=== PATIENT | female | born 1935 | race Caucasian/White ===

== ENCOUNTER → 2016-11-11 | Outpatient (CLI) | payer MEDICARE ==
[~2016-11-11] MED LIST: DIAZEPAM 10 MG TABLET. ONE; IOHEXOL 350 MG/ML 100 ML VIAL. ONE; IOHEXOL 350 MG/ML 50 ML VIAL. ONE; IV NORMAL SALINE 1000ML BAG 1,000 ML ONE; LIDOCAINE 1% Multi-Dose 20 ML VIAL. ONE; MIDAZOLAM HCL/PF 2 MG/2 ML VIAL. ONE; fentaNYL PF VIAL 100 MCG/2 ML VIAL ONE; hydrALAZINE 20 MG/ML VIAL. ONE
--- NOTE | 2016-11-12 17:29 | PCVCINTER ---
APPROVED REPORT Patient Details Patient Status: Room #: 2 The patient is a 81 year-old Female Event Personnel Aura Padilla MD, Cortes Mishra RT(R)(), Josh Cosme RN, Ellie Melo RT(R) Risk Factors Arterial HypertensionDysplipidemia (Type: 0), Last Creatanine 0.6 Previous Procedures/Diagnoses Arrhythmias - Supraventricular tachycardias->Paroxysmal AF, Hypertension Procedure Narrative The patient was brought electively to the Cardiac Catheterization Laboratory and was prepped and draped in a sterile manner. The right femoral was infiltrated with 1% Lidocaine subcutaneous anesthesia. The right femoral accessed via ultrasound guidance. A Right Heart Catheterization was performed with a 6 Fr. [place]-Kavitha catheter and pressure were recorded. Cardiac outputs were obtained by the Thermal Dilution method. A sheath was inserted into the right femoral artery. Coronary angiography was performed using coronary diagnostic catheters. The right coronary system was accessed and visualized with a Diagnostic catheter. The left coronary system was accessed and visualized with a Diagnostic catheter. The left ventricle was accessed and visualized with a Diagnostic catheter. Left ventriculogram was performed in LAZAR projection. An aortogram of the abdominal aorta was performed. Pre-demployment femoral angiogram was performed . Closure device was deployed with a 6 Fr Mynx. Hemostasis was obtained with manual pressure following sheath removal without any complications. The patient tolerated the procedure well and there were no complications associated with the procedure. There was no hematoma. Hemodynamics The right atrial mean pressure is 10 mmHg. The right ventricular pressure is 19/5 mmHg. The pulmonary artery pressure is 39/16 mmHg with a mean of 28 mmHg. The mean pulmonary capillary wedge pressure is 19 mmHg. The aortic pressure is 139/79 mmHg with a mean of 103 mmHg. The left ventricular pressure is 122/33 mmHg with a mean of 35 mmHg. The cardiac output and index were assessed using Thermal. The cardiac output using thermo method is 4.00 L/min. Conclusion #1 normal left jugular size with mild global hypokinesis EF 45-50% range mild MR #2 abdominal aorta is intact no aneurysm single renal arteries widely patent #3 left main free of disease giving rise to LAD and circumflex #4 LAD with mild irregularities extends to the apex #5 circumflex OM nondominant no significant disease #6 right coronary artery dominant vessel minimal irregularity no occlusive disease #7 successful right heart catheterization as described above with mild elevations in pulmonary pressure and pulmonary capillary wedge pressure Recommendations and plan we'll continue aggressive risk factor modification slightly more aggressive diuresis some relative fluid and sodium restriction no lifting for 48 hours no line tub Itineris or Waggoner for a week Follow-up scheduled 6 months
== END | disposition home or self-care (01) ==
LOC: PCVCINTER 07:28
PROVIDERS: ATTEND Internal Medicine Cardiovascular Disease
DX: I25.10 Atherosclerotic heart disease of native coronary artery without angina pectoris (principal); E78.5 Hyperlipidemia, unspecified; I10 Essential (primary) hypertension; I47.1 Supraventricular tachycardia; I48.0 Paroxysmal atrial fibrillation
CPT/HCPCS: 93460; 99152; 99153; C1751; C1760; C1769; C1894; J0360; J1644; J2250; J3010; J7030; Q9967

== ENCOUNTER → 2017-04-25 | Outpatient (CLI) | payer MEDICARE, OTHER | END | disposition home or self-care (01) | LOC: PCVCCLINIC 10:47 | DX: I48.91 Unspecified atrial fibrillation (principal); I10 Essential (primary) hypertension; I42.9 Cardiomyopathy, unspecified; R94.31 Abnormal electrocardiogram [ECG] [EKG]; Z79.899 Other long term (current) drug therapy | CPT/HCPCS: 80061; 93005; G0463 ==

== ENCOUNTER → 2017-06-02 | Outpatient (CLI) | payer OTHER, MEDICARE | END | disposition home or self-care (01) | LOC: PCVCIMAG 10:21 | DX: I82.432 Acute embolism and thrombosis of left popliteal vein (principal); I48.91 Unspecified atrial fibrillation; I42.9 Cardiomyopathy, unspecified; I10 Essential (primary) hypertension; Z79.899 Other long term (current) drug therapy | CPT/HCPCS: 93005; 93971; G0463 ==

== ENCOUNTER → 2017-12-19 | Outpatient (CLI) | payer MEDICARE, OTHER ==
--- NOTE | 2017-12-19 11:19 | PCVCIMAG ---
APPROVED REPORT Study performed: 12/19/2017 10:10:55 EXAM: Comprehensive 2D, Doppler, and color-flow Echocardiogram Patient Location: Echo lab Status: routine BSA: 1.76 HR: 85 bpmBP: 160/110 mmHg Rhythm: Atrial Fibrillation Other Information Study Quality: Adequate Indications Atrial Fibrillation Cardiomyopathy Hypertension/HDD 2D Dimensions IVSd: 8.71 (7-11mm)LVOT Diam: 19.30 (18-24mm) LVDd: 47.49 mm PWd: 8.71 (7-11mm)Ascending Ao: 36.05 (22-36mm) LVDs: 34.29 (25-40mm) Left Atrium: 44.39 (27-40mm) Aortic Root: 30.24 mm LV Single Plane 4CH: 45.91 % Volumes Left Atrial Volume (Systole) Single Plane 4CH: 60.99 mLSingle Plane 2CH: 70.65 mL LA ESV Index: 39.00 mL/m2 Aortic Valve AoV Peak Donavon.: 1.31 m/s AO Peak Gr.: 6.90 mmHgLVOT Max P.43 mmHg LVOT Max V: 0.98 m/s LILLIE Vmax: 2.26 cm2 AI Vmax: 5.34 m/s AI Lagrange: 4.78 m/s2 AI PHT: 324.22 ms Mitral Valve E/A Ratio: 0.9 MV E Max Donavon.: 0.94 m/s MV A Donavon.: 1.08 m/s Tricuspid Valve TR Peak Donavon.: 2.99 m/s TR Peak Gr.: 36.44 mmHg Left Ventricle The left ventricle is normal size. There is normal LV segmental wall motion. There is normal left ventricular wall thickness. Left ventricular systolic function is mild to moderately decreased. The left ventricular ejection fraction is within the normal range. LVEF is 40-45%. This study is not technically sufficient to allow evaluation of the LV diastolic function due to atrial fibrillation. Right Ventricle The right ventricle is normal size. The right ventricular systolic function is normal. Atria Left atrium is mildly dilated. The right atrium size is borderline enlarged Aortic Valve The aortic valve is normal in structure. Mild to moderate aortic regurgitation. There is no aortic valvular stenosis. Mitral Valve The mitral valve is normal in structure. There is no mitral valve regurgitation noted. No evidence of mitral valve stenosis. Tricuspid Valve The tricuspid valve is normal in structure. Moderate tricuspid regurgitation. Pulmonary artery pressure is 47mmHg. Pulmonic Valve The pulmonary valve is normal in structure. There is no pulmonic valvular regurgitation. Great Vessels The aortic root is normal in size. IVC is normal in size and collapses >50% with inspiration. Pericardium There is no pericardial effusion. <Conclusion> The left ventricle is normal size. Left ventricular systolic function is mild to moderately decreased. The left ventricular ejection fraction is within the normal range. LVEF is 40-45%. This study is not technically sufficient to allow evaluation of the LV diastolic function due to atrial fibrillation. The right ventricle is normal size. Left atrium is mildly dilated. The right atrium size is borderline enlarged Mild to moderate aortic regurgitation. There is no mitral valve regurgitation noted. Moderate tricuspid regurgitation. Pulmonary artery pressure is 47mmHg. The aortic root is normal in size. There is no pericardial effusion.
--- NOTE | 2017-12-19 12:12 | PCVCIMAG ---
EXAM: VENOUS DUPLEX LEFT LOWER EXTREMITY INDICATION: Leg pain and swelling. FINDINGS: Left leg: No thrombus in the common femoral, main femoral, or popliteal veins. These veins are compressible with phasic flow. Calf veins are unremarkable where seen. IMPRESSION: No evidence of deep venous thrombosis in the left lower extremity as detailed above. Prior left popliteal vein thrombus seen on May 2017 has resolved. LOC:[id number]
== END | disposition home or self-care (01) ==
LOC: PCVCIMAG 09:14
PROVIDERS: ATTEND Internal Medicine Cardiovascular Disease
DX: I48.91 Unspecified atrial fibrillation (principal); I42.9 Cardiomyopathy, unspecified; I10 Essential (primary) hypertension; I82.409 Acute embolism and thrombosis of unspecified deep veins of unspecified lower extremity; I08.2 Rheumatic disorders of both aortic and tricuspid valves; M79.605 Pain in left leg
CPT/HCPCS: 93306; 93971

== ENCOUNTER → 2018-09-19 | Outpatient (CLI) | payer MEDICARE | END | disposition home or self-care (01) | LOC: PCVCCLINIC 14:48 | PROVIDERS: ATTEND Internal Medicine Cardiovascular Disease | DX: I42.9 Cardiomyopathy, unspecified (principal); I48.91 Unspecified atrial fibrillation; E78.5 Hyperlipidemia, unspecified; Z86.718 Personal history of other venous thrombosis and embolism | CPT/HCPCS: 36415; 80061; 93005; G0463 ==